=== PATIENT | female | born 1990 | race Caucasian/White ===

== ENCOUNTER 2023-11-28 15:05 | Outpatient (CLI) | payer OTHER | END 2023-11-28 15:13 | disposition home or self-care (01) | LOC: SONOGRAMA 15:05 | DX: N23 Unspecified renal colic (principal); N39.0 Urinary tract infection, site not specified ==

== ENCOUNTER 2023-12-08 11:17 | Emergency (ER) | payer OTHER ==
[~2023-12-08] VITALS: Ht 160 cm; Wt 45.4 kg
[2023-12-08 12:24] LABS: HEMATOCRIT 38.5 % (36.0-45.00); HEMOGLOBIN 13.1 g/dL (12.0-15.00); MEAN CELL VOLUME 91.9 fL (80.00-100.00); MEAN CORPUSCULAR HEMOGLOBIN 31.2 pg (27.00-32.0); PLATELET COUNT 194 K/uL (150-450); RED BLOOD COUNT 4.19 M/uL (4.00-6.00); RED CELL DISTRIBUTION WIDTH 13.5 % (11.5-14.5)
[2023-12-08 13:20] LABS: CALCIUM 9.5 mg/dL (8.5-10.1); CREATININE SERUM 0.75 mg/dL (0.55-1.02); GFR 89.55; POTASSIUM 3.88 mEq/L (3.5-5.1)
== END 2023-12-08 16:47 | disposition home or self-care (01) ==
LOC: ER 11:17
PROVIDERS: General Practice
DX: N28.89 Other specified disorders of kidney and ureter (principal)

== ENCOUNTER 2024-12-20 14:27 | Emergency (ER) | payer OTHER ==
[~2024-12-20] VITALS: Ht 162.6 cm; Wt 45.4 kg
[2024-12-20 17:01] LABS: PH,URINE 5.5 (5.0-8.0); URINE APPEARANCE Clear; URINE BILIRRUBIN Negative (NEGATIVE); URINE BLOOD Negative; URINE COLOR Yellow; URINE GLUCOSE Negative (NEGATIVE); URINE KETONE Negative (NEGATIVE); URINE LEUKOCYTE Negative; URINE NITRATE Negative; URINE PROTEIN Negative (NEGATIVE); URINE UROBILINOGEN 0.2 E.U./dl
[2024-12-20 17:05] LABS: URINE BACTERIA 34.2 uL (0.0-1933); URINE EPITHELIAL CELLS 2.3 uL (0.0-38.8)
[2024-12-20 17:16] LABS: HEMATOCRIT 39.3 % (36.0-45.00); HEMOGLOBIN 13.2 g/dL (12.0-15.00); MEAN CELL VOLUME 93.9 fL (80.00-100.00); MEAN CORPUSCULAR HEMOGLOBIN 31.5 pg (27.00-32.0); RED BLOOD COUNT 4.19 M/uL (4.00-6.00)
[2024-12-20 17:17] LABS: MEAN CORPUSCULAR HGB CONC 33.6 g/dl (32.0-36.0); PLATELET COUNT 174 K/uL (150-450); RED CELL DISTRIBUTION WIDTH 14.1 % (11.5-14.5)
[2024-12-20 17:22] LABS: URINE RBC 0.1 uL (0.0-20.8); URINE WBC 0.9 uL (0.0-23.2)
[2024-12-20 18:36] LABS: INR 1.21
[2024-12-20 18:55] LABS: ALBUMIN 4.3 gm/dL (3.4-5.0); ALKALINE PHOSPHATASE 37 U/L (50-136); ALT/SGPT 26 U/L (12-78); ANION GAP 9 (10.0-20.0); AST/SGOT 21 U/L (15-37); BLOOD UREA NITROGEN 9 mg/dL (7-18); BUN CREA RATIO 13 (7.0-25.0); CALCIUM 8.9 mg/dL (8.5-10.1); CARBON DIOXIDE 27 mEq/L (21-32); CHLORIDE 107 mmol/L (98-107); CREATININE SERUM 0.67 mg/dL (0.55-1.02); GFR 101.36; GLOBULINA 2.9 G/DL (2.4-3.5); GLUCOSE FASTING 88 mg/dL (65-100); OSMOLALITY SERUM 276 MOSM/KG (275-295); POTASSIUM 4.13 mEq/L (3.5-5.1); SODIUM 139 mmol/L (136-145); TOTAL PROTEIN 7.2 gm/dL (6.4-8.2)
[2024-12-20 18:58] LABS: HCG QUANTITATIVE < 1 mUI/mL (1-3)
[2024-12-20] MEDS ORDERED: NORFLEX100MG PO (22:23)
== END 2024-12-20 22:47 | disposition home or self-care (01) ==
LOC: ER 14:30
PROVIDERS: General Practice
DX: N93.9 Abnormal uterine and vaginal bleeding, unspecified (principal); N83.202 Unspecified ovarian cyst, left side; Z85.528 Personal history of other malignant neoplasm of kidney

== ENCOUNTER 2025-02-03 13:19 | Outpatient (CLI) | payer OTHER ==
[~2025-02-03 13:19] MED LIST: NORFLEX100MG PO
== END 2025-02-03 13:37 | disposition home or self-care (01) ==
LOC: RAD 13:19
PROVIDERS: ATTEND General Practice
DX: M25.551 Pain in right hip (principal); M25.552 Pain in left hip; M25.561 Pain in right knee; M25.562 Pain in left knee